=== PATIENT | male | born 1995 | race Two or more races ===

== ENCOUNTER 2023-09-17 17:26 | Emergency (ER) | payer SELFPAY ==
[~2023-09-17] VITALS: Ht 175.3 cm; Wt 76.4 kg
[2023-09-17] MEDS ORDERED: ONDANSETRON HCL 4 MG/2 ML VIAL IVP ONE ×2 (18:00→20:45)
[2023-09-17] MEDS ORDERED: SODIUM CHLORIDE 0.9% 1,000 ML IV ONE (18:00)
[2023-09-17] MEDS ORDERED: BISMUTH SUBSALICYLATE 525 MG/30 ML SUSPENSION UDCUP PO ONE (18:00)
[2023-09-17 18:22] LABS: COVID AG,FIA SOURCE NASAL SWAB
[2023-09-17 18:23] LABS: BASOPHILS % (AUTO) 0.3 % (0.0-2.0); EOSINOPHILS % (AUTO) 0.1 % (1.0-6.0); HEMATOCRIT 46.1 % (41-53); LYMPHOCYTES # (AUTO) 1.4 K/uL (1.0-4.8); LYMPHOCYTES % (AUTO) 8.5 % (22.0-44.0); MEAN CORPUSCULAR HEMOGLOBIN 31.2 pg (26.0-34.0); MEAN CORPUSCULAR HGB CONC 34.7 G/dL (31.0-37.0); MEAN CORPUSCULAR VOLUME 90 fL (80-100); MONOCYTES # (AUTO) 1.6 K/uL (0.1-1.0); MONOCYTES % (AUTO) 9.9 % (2.0-9.0); NEUTROPHILS # (AUTO) 12.9 K/uL (1.8-7.7); NEUTROPHILS % (AUTO) 81.2 % (40.0-70.0); PLATELET COUNT (AUTO) 283 K/uL (150-450); RED BLOOD CELL COUNT(AUTO) 5.13 MIL/uL (4.50-5.90); RED CELL DISTRIBUTION WIDTH 12.9 % (11.5-14.5); WHITE BLOOD COUNT (AUTO) 15.9 K/uL (4.5-11.0)
[2023-09-17 18:30] LABS: ANION GAP 13 mmol/L (8-16); CALCIUM, TOTAL 9.6 mg/dL (8.8-10.5); CARBON DIOXIDE 23 mmol/L (22-29); CHLORIDE 97 mmol/L (98-107); CREATININE 1.11 mg/dL (0.60-1.30); GLOMERULAR FILTR. RATE CALC > 60 mL/min (>60); GLUCOSE,RANDOM 100 mg/dL (70-110); POTASSIUM 3.4 mmol/L (3.5-5.1); SODIUM SERUM 133 mmol/L (136-145); UREA NITROGEN, BLOOD 11 mg/dL (7-18)
[2023-09-17 18:37] LABS: ALANINE AMINOTRANSFERASE 31 U/L (12-78); ALBUMIN 3.9 g/dL (3.4-5.0); ALKALINE PHOSPHATASE 88 U/L (46-116); ASPARTATE AMINOTRANSFERASE 22 U/L (15-37); BILIRUBIN,TOTAL 0.9 mg/dL (0.1-1.0); LIPASE 28 U/L (16-77)
[2023-09-17 18:46] LABS: SARS-COV2 (COVID) ANTIGEN,FIA Negative (Negative)
[2023-09-17 18:48] LABS: INFLUENZA TYPE A NEGATIVE FOR TYPE A (NEGATIVE); INFLUENZA TYPE B NEGATIVE FOR TYPE B (NEGATIVE)
[2023-09-17 20:10] LABS: APPEARANCE,URINE CLEAR (CLEAR); BILIRUBIN,URINE NEGATIVE (NEGATIVE); COLOR,URINE LIGHT YELLOW (YELLOW); GLUCOSE, URINE (UA) NEGATIVE (NEGATIVE); KETONES,URINE 80-100 mg/dL (NEGATIVE); LEUKOCYTE ESTERASE ,URINE NEGATIVE (NEGATIVE); NITRATE,URINE NEGATIVE (NEGATIVE); OCCULT BLOOD,URINE NEGATIVE (NEGATIVE); PH,URINE 7.5 (5.0-8.0); SPECIFIC GRAVITIY, URINE 1.018 (1.003-1.030); UROBILINOGEN,URINE <=1.0 mg/dL (<=1.0)
[2023-09-17 20:11] LABS: PROTEIN,URINE NEGATIVE (NEGATIVE)
[2023-09-17] MEDS ORDERED: PB/HYOSCY/ATR/SCOP/LIDO/MAALOX 55 ML BOTTLE PO ONE (20:30)
[2023-09-17] MEDS ORDERED: CAPSAICIN 0.025% 60 GM CREAM TP ONE (21:15)
[2023-09-17 22:34] VITALS: TEMP 98.5
[2023-09-17] MEDS ORDERED: ONDA-104 PO (22:35)
[2023-09-17] MEDS ORDERED: FAMO20 PO (22:35)
[2023-09-17] MEDS ORDERED: POTASSIUM CHLORIDE 20 MEQ ER TABLET PO ONE (22:45)
[2023-09-17 22:51] VITALS: BP 148/78; PULSE 78; RESP 16
== END 2023-09-17 22:52 | disposition home or self-care (01) ==
LOC: EMS 17:28
DX: K21.9 Gastro-esophageal reflux disease without esophagitis (principal); R10.13 Epigastric pain; R19.7 Diarrhea, unspecified; R11.2 Nausea with vomiting, unspecified; F12.90 Cannabis use, unspecified, uncomplicated; Z20.822 Contact with and (suspected) exposure to COVID-19
CPT/HCPCS: 99285; 96374; 96361; 87426; 80053; 81003; 83690; 85025; 87430; 87804; 36415; 96376; J2405; J7030